=== PATIENT | male | born 1995 | race Caucasian/White ===

== ENCOUNTER 2019-04-07 17:01 | Emergency (ER) | payer BC ==
[~2019-04-07] VITALS: Ht 175.3 cm; Wt 68.9 kg
[2019-04-07] MEDS ORDERED: LEXAPRO10 MG ORAL (17:20)
[2019-04-07] MEDS ORDERED: KLONOPIN0.5 MG ORAL (17:20)
[2019-04-07] MEDS ORDERED: TRUVADA 200 MG1 EAC1 ORAL (17:20)
[2019-04-07 17:40] VITALS: BP 121/71
--- NOTE | 2019-04-07 17:40 | Emergency Room Report ---
History of Present Illness General Chief Complaint: Male Urogenital Problems Source: Patient Present Illness HPI 23-year-old male with no significant past medical history here complaining of 3 days of penile discharge and now is having minimal rectal discharge describing it as yellow and clear with mild odor. She reports that he was sexually active in [place] few days ago and started feeling symptoms a day after went to a family clinic today and got tested for all sexually transmitted diseases however was not given any prescription or treatment. Patient is sexually active with men, denies penile or rectal ulcers, pain, dysuria, hematuria, pubic pain and pressure. Patient reports that he receives and performs anal intercourse. Denies fever, chills, penile pruritus. Denies all other associated symptoms Allergies: Coded Allergies: No Known Allergies (Unverified , 04/07/19) Patient History Past Medical History: see triage record Past Surgical History: unable to obtain Pertinent Family History: none Immunizations: UTD Reviewed Nursing Documentation: PMH: Agreed; PSxH: Agreed Nursing Documentation-PMH Past Medical History: No Stated History Review of Systems All Other Systems: negative except mentioned in HPI Physical Exam Vital Signs Date Time Temp Pulse Resp B/P (MAP) Pulse Ox O2 Delivery O2 Flow Rate FiO2 04/07/19 17:15 98.4 88 17 121/71 (88) 99 Room Air Sp02 EP Interpretation: reviewed, normal General Appearance: normal inspection, well appearing Head: normocephalic Eyes: bilateral eye normal inspection, bilateral eye PERRL ENT: normal ENT inspection Neck: normal inspection Respiratory: normal inspection, chest non-tender, lungs clear, no wheezing Cardiovascular #1: normal inspection, normal peripheral pulses, regular rate, rhythm Gastrointestinal: normal inspection, normal bowel sounds, soft Rectal: deferred Genitourinary: no CVA tenderness Musculoskeletal: normal inspection, back normal Neurologic: normal inspection, alert Psychiatric: normal inspection Skin: normal inspection, normal color Lymphatic: normal inspection, no adenopathy Medical Decision Making PA Attestation All my diagnosis and treatment plans were reviewed ad discussed with my supervising physician Dr. Guan Diagnostic Impression: Primary Impression: Prophylactic antibiotic Additional Impression: Abnormal penile discharge ER Course 23-year-old male with no significant past medical history here complaining of 3 days of penile discharge and now is having minimal rectal discharge describing it as yellow and clear with mild odor. She reports that he was sexually active in [place] few days ago and started feeling symptoms a day after went to a family clinic today and got tested for all sexually transmitted diseases however was not given any prescription or treatment. Patient is sexually active with men, denies penile or rectal ulcers, pain, dysuria, hematuria, pubic pain and pressure. Patient reports that he receives and performs anal intercourse. Denies fever, chills, penile pruritus. Denies all other associated symptoms Ddx considered but are not limited to: vaginitis, yeast infection, BV, chlamydia , Gohnorrea, syphylis, HIV, herpes 1 or 2 Vital signs: are WNL, pt. is afebrile H&PE are most consistent with :possible chlamydia and gohnorrhea ORDERS: no testing necessary as pt just had complete STD check done pending results at a family clinic , rocephin and azithromycin ED INTERVENTIONS: rocephin 250mg IM. DISCHARGE: At this time pt. is stable for d/c to home. Will provide printed patient care instructions, and any necessary prescriptions. Care plan and follow up instructions have been discussed with the patient prior to discharge. Condoms only repeat test in 2 8 weeks, have partner tested and treated Last Vital Signs Date Time Temp Pulse Resp B/P (MAP) Pulse Ox O2 Delivery O2 Flow Rate FiO2 04/07/19 17:15 98.4 88 17 121/71 (88) 99 Room Air Disposition: HOME, SELF-CARE Condition: Stable Scripts Azithromycin (AZITHROMYCIN) 500 Mg Tablet 2 TAB ORAL DAILY for 1 Day, #2 TAB Prov: Tho Palomo 04/07/19 Patient Instructions: Chlamydia, Male, Gonorrhea Additional Instructions: follow up with your lab results in [facility] you are agreeing to prophylactic treatment of both chlamydia and gonorrhea today have your partner be tested and treated avoid sexual activity for 7 days and with condoms only after repeat test in 6 to 8 weeks Tho Palomo Apr 07, 2019 17:40
[2019-04-07] MEDS ORDERED: AZITHROMYCIN500 MG ORAL (17:41)
[2019-04-07] MEDS ORDERED: Lidocaine 1% MPF 10mg/ml 5ml INJ ONE (17:45)
[2019-04-07 18:07] VITALS: BP 121/71
--- NOTE | 2019-04-07 19:01 | NUR ---
ED Nurse Note: pt walked in c/o having rectal and penial discharge for 5 days, eleni salinas done pt medicated given aci and script verbalized understanding ambulated out with strong and steady gait.
== END 2019-04-07 18:08 | disposition home or self-care (01) ==
LOC: EMR 17:52
DX: R36.9 Urethral discharge, unspecified (principal); Z20.2 Contact with and (suspected) exposure to infections with a predominantly sexual mode of transmission
CPT/HCPCS: 96372; 99283; J0696